=== PATIENT | female | born 1940 | race Caucasian/White ===

== ENCOUNTER 2018-06-02 20:14 | Inpatient (IN) | payer OTHER ==
[~2018-06-02] VITALS: Ht 162.6 cm; Wt 65.0 kg
[~2018-06-02 20:14] MED LIST: ADVIN10/60 INH; AMB10 PO; MULT-506 PO; WLLSR/200 PO
[2018-06-02] MEDS ORDERED: SODIUM CHLORIDE 0.9% 1000ML 1,000 ML IV STA ×2 (20:31)
[2018-06-02 20:45] LABS: BASO % 0.2 %; BASO ABS # 0.02 K/uL (0-0.2); EOS % 0.5 %; EOS ABS # 0.06 K/uL (0-0.5); HEMATOCRIT 40.3 % (37-47); HEMOGLOBIN 13.3 g/dL (12.0-16.0); IG# 0.02 K/uL (0.00-0.02); LYMPH % 19.9 %; LYMPH ABS # 2.31 K/uL (1.2-3.4); MEAN CELL VOLUME 92.6 fL (80-100); MEAN CORPUSCULAR HEMOGLOBIN 30.6 pg (25-34); MEAN PLATELET VOLUME 10.5 fL (7.4-10.4); MONO % 5.4 %; MONO ABS # 0.63 K/uL (0.11-0.59); NEUT % 73.8 %; NEUT ABS # 8.58 K/uL (1.4-6.5); PLATELET COUNT 326 K/uL (130-400); RED CELL DISTRIBUTION WIDTH CV 12.9 % (11.5-14.5); WHITE BLOOD COUNT 11.62 K/uL (4.8-10.8)
[2018-06-02 20:54] LABS: INR 0.9 (0.9-1.1); PTT PATIENT 24.3 SECONDS (21.0-31.0)
[2018-06-02 21:11] LABS: CALCIUM 9.5 mg/dl (8.5-10.1); POTASSIUM 3.4 mmol/L (3.5-5.1); TOTAL PROTEIN 8.1 gm/dl (6.4-8.2)
[2018-06-02] MEDS ORDERED: ZOLP10TA PO (21:59)
[2018-06-02] MEDS ORDERED: PRED20TA PO (22:00)
[2018-06-02] MEDS ORDERED: BUPR-79 PO (22:01)
[2018-06-02] MEDS ORDERED: BUPR200T2 PO ×2 (22:01→23:55)
[2018-06-02] MEDS ORDERED: ALBINS/ INH (23:55)
[2018-06-02] MEDS ORDERED: VNTHFA/IN INH (23:55)
[2018-06-02] MEDS ORDERED: ASPI-232 PO (23:55)
[2018-06-02] MEDS ORDERED: FEXO1TAB46 PO (23:55)
[2018-06-02] MEDS ORDERED: ADVIN25/60 INH (23:55)
[2018-06-03] VITALS (7 sets, daily range): BP systolic 106–152; BP diastolic 65–92; PULSE 73–105; TEMP 36.6–36.9; O2SAT 95–98; Ht 162.6 cm; Wt 65.0 kg
[2018-06-03] MEDS ORDERED: ALUMINUM/MAGNESIUM/SIMETH (MAALOX MAX) 30 ML UDC PO PRN
[2018-06-03] MEDS ORDERED: ALBUTEROL HFA 8 GM INHALER INH PRN
[2018-06-03] MEDS ORDERED: ALBUTEROL 0.083% NEBU SOLN 3 ML VIAL INH PRN
[2018-06-03] MEDS ORDERED: NITROGLYCERIN 0.4 MG SL PER TAB CHARGE SL PRN
[2018-06-03] MEDS ORDERED: ONDANSETRON INJ 2 MG/ML 2 ML VIAL IV PRN
[2018-06-03] MEDS ORDERED: ACETAMINOPHEN 325 MG TAB PO PRN
[2018-06-03] MEDS: SODIUM CHLORIDE 0.9% 1000ML 1,000 ML IV SCH ×2 (00:52→14:23)
[2018-06-03] MEDS ORDERED: ZOLPIDEM TARTRATE 10 MG TAB PO ONE (01:00)
[2018-06-03] MEDS ORDERED: ZOLPIDEM TARTRATE 5 MG TAB PO ONE (01:15)
--- NOTE | 2018-06-03 01:44 | EMERGENCY ROOM VISIT NOTE ---
History Report prepared by Kailyn: Gustavo Reid Under the Supervision of: Dr. Shabbir Modi D.O. First contact with patient: 20:22 Chief Complaint: GI ASSESSMENT Stated Complaint: EXPELLED BLOOD CLOTS RECTALLY,DIARRHEA History of Present Illness The patient is a 78 year old female who presents to the Emergency Room with complaints of blood clots that emerged from her rectum at 1830 today while urinating. She explains that 2-3 blood clots about the size of a quarter came out. She notes she did have bad diarrhea this morning but there was no blood in the stool. She does have a history of IBS and is not on any blood thinners. Pt denies headache, change in vision, fevers, chest pain, shortness of breath, abdominal pain, nausea, vomiting, diarrhea, pain with urination, and melena. Source of History: patient Onset: 1829 today Position: abdomen Timing: intermittent Associated Symptoms: + diarrhea, No fevers, No chest pain, No SOB, No nausea , No vomiting, No melena, No urinary symptoms Review of Systems See HPI for pertinent positives & negatives. A total of 10 systems reviewed and were otherwise negative. Past Medical & Surgical Medical Problems: (1) Breast cancer (2) Gastroparesis (3) GERD (gastroesophageal reflux disease) (4) GI bleed (5) Kidney stone Family History Patient reports no known family medical history. Social History Smoking Status: Never Smoker Alcohol Use: occasionally Marital Status: Housing Status: lives alone Occupation Status: employed Current/Historical Medications Scheduled Aspirin (Aspir-81), 1 TAB PO DAILY Bupropion (Wellbutrin Sr), 200 MG PO BID Fluticasone Prop/Salmeterol (Advair Diskus 250/50 60 Dose), 1 PUFF INH BID Multivitamin (Multivitamin), 1 TAB PO DAILY Zolpidem Tartrate (Ambien), 10 MG PO HS Scheduled PRN Albuterol Hfa (Ventolin Hfa), 2 PUFFS INH Q6H PRN for SOB/Wheezing Albuterol Sulf (Proventil 0.083% 2.5MG/3ML), 2.5 MG INH Q4 PRN for SOB/Wheezing Fexofenadine Hcl (Marvin), 180 MG PO DAILY PRN for Allergic Reaction Allergies Coded Allergies: Atorvastatin (Verified Adverse Reaction, Intermediate, LEG PAIN, 03/15/16) Physical Exam Vital Signs Date Time Temp Pulse Resp B/P (MAP) Pulse Ox O2 Delivery O2 Flow Rate FiO2 06/02/18 23:46 98 16 149/89 99 Room Air 06/02/18 22:03 105 16 148/84 99 Room Air 06/02/18 20:39 99 Room Air 06/02/18 20:30 135 06/02/18 20:16 36.9 141 16 177/94 96 Room Air Physical Exam GENERAL: Sitting up in bed, alert, well appearing, well nourished, no distress, non-toxic EYE EXAM: normal conjunctiva. OROPHARYNX: no exudate, no erythema, lips, buccal mucosa, and tongue normal and mucous membranes are moist NECK: supple, no nuchal rigidity, no adenopathy, non-tender LUNGS: Clear to auscultation. Normal chest wall mechanics HEART: no murmurs, S1 normal and S2 normal ABDOMEN: abdomen soft, non-tender, normo-active bowel sounds, no masses, no rebound or guarding. BACK: Back is symmetrical on inspection and there is no deformity, no midline tenderness, no CVA tenderness. RECTAL: Heme positive stool SKIN: no rashes and no bruising UPPER EXTREMITIES: upper extremities are grossly normal. LOWER EXTREMITIES: No pitting edema. NEURO EXAM: Normal sensorium, cranial nerves II-XII grossly intact, normal speech, no gross weakness of arms, no gross weakness of legs. Medical Decision & Procedures Laboratory Results 06/02/18 20:30 Red Blood Count 4.35, Mean Corpuscular Volume 92.6, Mean Corpuscular Hemoglobin 30.6, Mean Corpuscular Hemoglobin Concent 33.0, Mean Platelet Volume 10.5, Neutrophils (%) (Auto) 73.8, Lymphocytes (%) (Auto) 19.9, Monocytes (%) (Auto) 5.4, Eosinophils (%) (Auto) 0.5, Basophils (%) (Auto) 0.2, Neutrophils # (Auto) 8.58, Lymphocytes # (Auto) 2.31, Monocytes # (Auto) 0.63, Eosinophils # (Auto) 0.06, Basophils # (Auto) 0.02 06/02/18 20:30 Test 06/02/18 20:30 06/02/18 20:45 White Blood Count 11.62 K/uL (4.8-10.8) Red Blood Count 4.35 M/uL (4.2-5.4) Hemoglobin 13.3 g/dL (12.0-16.0) Hematocrit 40.3 % (37-47) Mean Corpuscular Volume 92.6 fL (80-100) Mean Corpuscular Hemoglobin 30.6 pg (25-34) Mean Corpuscular Hemoglobin Concent 33.0 g/dl (32-36) Platelet Count 326 K/uL (130-400) Mean Platelet Volume 10.5 fL (7.4-10.4) Neutrophils (%) (Auto) 73.8 % Lymphocytes (%) (Auto) 19.9 % Monocytes (%) (Auto) 5.4 % Eosinophils (%) (Auto) 0.5 % Basophils (%) (Auto) 0.2 % Neutrophils # (Auto) 8.58 K/uL (1.4-6.5) Lymphocytes # (Auto) 2.31 K/uL (1.2-3.4) Monocytes # (Auto) 0.63 K/uL (0.11-0.59) Eosinophils # (Auto) 0.06 K/uL (0-0.5) Basophils # (Auto) 0.02 K/uL (0-0.2) RDW Standard Deviation 44.0 fL (36.4-46.3) RDW Coefficient of Variation 12.9 % (11.5-14.5) Immature Granulocyte % (Auto) 0.2 % Immature Granulocyte # (Auto) 0.02 K/uL (0.00-0.02) Prothrombin Time 9.8 SECONDS (9.0-12.0) Prothromb Time International Ratio 0.9 (0.9-1.1) Activated Partial Thromboplast Time 24.3 SECONDS (21.0-31.0) Partial Thromboplastin Ratio 0.9 Anion Gap 10.0 mmol/L (3-11) Est Creatinine Clear Calc Drug Dose 42.7 ml/min Estimated GFR () 62.1 Estimated GFR (Non- 53.5 BUN/Creatinine Ratio 8.2 (10-20) Calcium Level 9.5 mg/dl (8.5-10.1) Total Bilirubin 0.5 mg/dl (0.2-1) Direct Bilirubin 0.1 mg/dl (0-0.2) Aspartate Amino Transf (AST/SGOT) 13 U/L (15-37) Alanine Aminotransferase (ALT/SGPT) 19 U/L (12-78) Alkaline Phosphatase 85 U/L (45-117) Total Protein 8.1 gm/dl (6.4-8.2) Albumin 4.0 gm/dl (3.4-5.0) Lipase 95 U/L (73-393) Urine Color YELLOW Urine Appearance CLEAR (CLEAR) Urine pH 6.0 (4.5-7.5) Urine Specific [place] 1.010 (1.000-1.030) Urine Protein NEG (NEG) Urine Glucose (UA) NEG (NEG) Urine Ketones NEG (NEG) Urine Occult Blood TRACE (NEG) Urine Nitrite NEG (NEG) Urine Bilirubin NEG (NEG) Urine Urobilinogen NEG (NEG) Urine Leukocyte Esterase LARGE (NEG) Urine WBC (Auto) >30 /hpf (0-5) Urine RBC (Auto) 0-4 /hpf (0-4) Urine Hyaline Casts (Auto) 10-30 /lpf (0-5) Urine Epithelial Cells (Auto) 20-30 /lpf (0-5) Urine Bacteria (Auto) NEG (NEG) Laboratory results per my review. Medications Administered Medications (Trade) Dose Ordered Sig/Poncho Route Start Time Stop Time Status Last Admin Dose Admin Sodium Chloride 1,000 ml @ 999 mls/hr Q1H1M STAT IV 06/02/18 20:31 06/02/18 21:31 DC 06/02/18 20:46 999 MLS/HR Sodium Chloride 1,000 ml @ 999 mls/hr Q1H1M STAT IV 06/02/18 20:31 06/02/18 21:31 DC 06/02/18 20:47 999 MLS/HR Sodium Chloride 1,000 ml @ 75 mls/hr [id number] IV 06/02/18 23:49 07/02/18 23:48 06/03/18 00:52 75 MLS/HR ECG Per My Interpretation Indication: abdominal pain Rate (beats per minute): 117 Rhythm: sinus tachycardia Findings: other (Non specific ST changes in lateral leads ) ED Course ED COURSE: Vital signs were reviewed and showed hypertension and tachycardia. The patients medical record was reviewed The above diagnostic studies were performed and reviewed. ED treatments and interventions as stated above. 2025: The patient was evaluated in room A9B. A complete history and physical examination was performed. 2136: I updated the patient about tests results. 2145: I spoke with Dr. Sincere Velázquez about accepting the patient. 2224: Upon reevaluation, the patient is resting in bed. I discussed my findings with the patient and she understands and agrees with the treatment plan. Based on the patients age, coexisting illnesses, exam and lab findings the decision to treat as an inpatient was made. The patient remained stable while under my care. The patient will be evaluated for further management. Medical Decision Differential diagnoses includes but is not limited to gastritis, peptic ulcer disease, GERD, gallbladder disease, pancreatitis, small bowel obstruction, acute coronary syndrome, pericarditis, ischemic bowel, irritable bowel disease, irritable bowel syndrome, appendicitis, diverticulitis, malignancy, hernia, urinary tract infection, torsion, [/ectopic (if female)], perforation, trauma, infectious. Patient is a 78-year-old female who presents the ER for dark blood blood per rectum associated with a heart rate in the 130s. EKG confirms sinus tach with nonspecific ST wave changes. Patient was given IVs. CBC was unremarkable with a hemoglobin 12 and no significant leukocytosis. BMP with mild hypokalemia at 3.4. Bilirubin and LFTs along with lipase is unremarkable. UA does suggest is likely contaminated. No urinary symptoms. Patient was updated bedside discussed with the hospitalist for observation. Medication Reconcilliation Current Medication List: was personally reviewed by me Blood Pressure Screening Patient's blood pressure: Elevated blood pressure Blood pressure disposition: Elevated BP felt to be situational Consults Time Called: 2145 Consulting Physician: Dr. Sincere Velázquez Returned Call: 2145 I reviewed the patient's case with Dr. Post. He will evaluate the patient for further management. Impression Primary Impression: GI bleed Additional Impressions: Tachycardia Hypokalemia Scribe Attestation The scribe's documentation has been prepared under my direction and personally reviewed by me in its entirety. I confirm that the note above accurately reflects all work, treatment, procedures, and medical decision making performed by me. Departure Information Dispostion Being Evaluated By Hospitalist Prescriptions Fexofenadine Hcl (MARVIN) 180 Mg Tab 180 MG PO DAILY Y for Allergic Reaction, #10 TAB Prov: Radames Post MD 06/02/18 Aspirin (ASPIR-81) 81 Mg Tab 1 TAB PO DAILY for 30 Days, #30 TAB 5 Refills Prov: Radames Post MD 06/02/18 Albuterol Sulf (PROVENTIL 0.083% 2.5MG/3ML) 2.5 Mg/3 Ml Nebu 2.5 MG INH Q4 Y for SOB/Wheezing, #1 EA Prov: Radames Post MD 06/02/18 Albuterol Hfa (VENTOLIN HFA) 200 Puffs/79189 Mcg Aers 2 PUFFS INH Q6H Y for SOB/Wheezing, #1 INHALER Prov: Radames Post MD 06/02/18 Fluticasone Prop/Salmeterol (Advair Diskus 250/50 60 Dose) 1 Ea Aerp 1 PUFF INH BID, #1 INHALER Prov: Radames Post MD 06/02/18 Bupropion (Wellbutrin Sr) 200 Mg Ertab 200 MG PO BID, #30 TAB Prov: Radames Post MD 06/02/18 Referrals Kim Martin D.OQuinton (PCP) Forms HOME CARE DOCUMENTATION FORM, IMPORTANT VISIT INFORMATION Patient Instructions [facility] Problem Qualifiers Primary Impression: GI bleed GI bleed type/associated pathology: unspecified gastrointestinal hemorrhage type Qualified Codes: K92.2 - Gastrointestinal hemorrhage, unspecified
--- NOTE | 2018-06-03 02:57 | HISTORY & PHYSICAL EXAMINATION ---
DATE OF ADMISSION: 06/02/2018 CHIEF COMPLAINT: Blood in the stools. HISTORY OF PRESENT ILLNESS: This is a 78-year-old female with past medical history significant for gastroparesis, hyperlipidemia, irritable bowel syndrome, esophageal stricture, GERD, COPD, presents with blood in the stools. The patient states in the morning when she woke up, she had a gush of diarrhea and she had regular visit with the family doctor. Then after coming home, she again had a bowel movement with few clots of blood and that prompted her to come to the ER. Since then, she did not move her bowels. Denies any belly pain. No nausea, no vomiting. Currently, resting comfortable and hemodynamically stable. Denies any headaches. No blurred vision, no earache, no runny nose, no sore throat, no difficulty swallowing. No cough. No chest pain or shortness of breath. No rash, no swelling in the legs, otherwise the patient is doing okay. She says she had a colonoscopy last year and was okay and once in a while she gets an EGD done to get her esophageal stricture dilated. ALLERGIES: LIPITOR. PAST MEDICAL HISTORY: As mentioned above. PAST SURGICAL HISTORY: Colonoscopy, EGD with biopsy, EGD with dilatation, partial mastectomy, right breast biopsy. MEDICATIONS: The patient is currently on Wellbutrin SR 200 mg p.o. b.i.d., Ambien 10 mg p.o. at bedtime, Advair Diskus 250/50 one dose b.i.d., albuterol 2 puffs p.r.n., Tylenol p.r.n., vitamin C 1000 mg p.o. daily, fexofenadine 180 mg p.r.n., albuterol nebulization q. 4 hours p.r.n., aspirin 81 mg p.o. daily, multivitamin p.o. daily. FAMILY HISTORY: Significant for father had skin cancer, diabetes. Mother had breast cancer, skin cancer. Sister has diabetes. SOCIAL HISTORY: . No smoking history. Alcohol socially. No drug use. REVIEW OF SYMPTOMS: As per HPI. Rest of review of symptoms negative. PHYSICAL EXAMINATION: GENERAL: The patient is of moderate build, not in distress. VITAL SIGNS: Temperature 36.9, pulse 105, respiratory rate 16, blood pressure 148/84, oxygen 99% on room air. HEENT: No pallor, no icterus. Pupils equal, round, and reactive to light. NECK: No JVD, no neck masses, no carotid bruits. CARDIOVASCULAR: S1, S2 heard. Tachycardia. No murmur. RESPIRATORY SYSTEM: Normal AP diameter. No accessory muscle use. No wheezing, no crackles. ABDOMEN: Soft, bowel sounds present. Nontender. No distention. CENTRAL NERVOUS SYSTEM: Cranial nerves II-XII grossly intact. Nonfocal. EXTREMITIES: No edema, no erythema. LABS: WBC 11.6, hemoglobin 13.3, hematocrit 40.3, platelets 326. Sodium 140, potassium 3.4, chloride 106, bicarb 24, BUN 8, creatinine 1, serum glucose 107, calcium 9.5, total bilirubin 0.5, direct bilirubin 0.1, AST 13, ALT 19, alkaline phosphatase 85, lipase 95. PT 9.8, INR 0.9, APTT 24.3. Urinalysis positive for leukocyte esterase. EKG shows sinus tachycardia with rate of 117, nonspecific ST changes seen, no acute ST changes seen. ASSESSMENT AND PLAN: This is a 78-year-old female who presents with gastrointestinal bleed. 1. Gastrointestinal bleed. Lower gastrointestinal bleed with few blood clots in the bowel movement. Currently, resting comfortably, hemodynamically stable. Patient has history of irritable bowel syndrome. Hemoglobin is stable. We will keep her n.p.o., IV fluids, follow H and H and consult GI for further recommendations. The patient said she had colonoscopy last year, which was okay and she says she stopped taking ibuprofen for arthritis about 7 weeks ago and currently taking Tylenol. 2. History of esophageal stricture, currently stable. 3. History of irritable bowel syndrome. We will monitor. 4. History of depression. Continue Wellbutrin. 5. History of chronic obstructive pulmonary disease, asthma. Continue Advair Diskus and nebulization p.r.n. 6. Deep venous thrombosis prophylaxis, SCDs for now. 7. Disposition: Admit to tele floor. Expect to discharge home and follow with family doctor. Level 1 full code. MTDD
[2018-06-03 06:32] LABS: BASO % 0.3 %; BASO ABS # 0.02 K/uL (0-0.2); EOS ABS # 0.08 K/uL (0-0.5); HEMATOCRIT 35.3 % (37-47); HEMOGLOBIN 11.5 g/dL (12.0-16.0); IG# 0.02 K/uL (0.00-0.02); LYMPH % 28.2 %; LYMPH ABS # 2.22 K/uL (1.2-3.4); MEAN CELL VOLUME 93.6 fL (80-100); MEAN CORPUSCULAR HEMOGLOBIN 30.5 pg (25-34); MEAN CORPUSCULAR HGB CONC 32.6 g/dl (32-36); MEAN PLATELET VOLUME 9.6 fL (7.4-10.4); MONO % 7.3 %; MONO ABS # 0.57 K/uL (0.11-0.59); NEUT % 62.9 %; NEUT ABS # 4.95 K/uL (1.4-6.5); PLATELET COUNT 238 K/uL (130-400); RED CELL DISTRIBUTION WIDTH SD 44.7 fL (36.4-46.3); WHITE BLOOD COUNT 7.86 K/uL (4.8-10.8)
[2018-06-03 07:05] LABS: CALCIUM 8.5 mg/dl (8.5-10.1); CREATININE 0.8 mg/dl (0.60-1.20); POTASSIUM 3.4 mmol/L (3.5-5.1)
[2018-06-03] MEDS: BuPROPion SR 100 MG TABCR PO SCH ×2 (07:45→20:24)
[2018-06-03] MEDS: FLUTICASONE/SALMETEROL 250/50 (ADVAIR) 14 PUFF/1 INHALER INH SCH ×2 (07:45→20:04)
[2018-06-03] MEDS ORDERED: POTASSIUM CHLORIDE 10 MEQ TABCR PO STA (08:13)
[2018-06-03] MEDS ORDERED: MULTIVITAMIN TAB PO SCH (09:00)
[2018-06-03] MEDS: PANTOprazole INJ 40 MG in SYRINGE 0 ML IV SCH ×2 (09:17→20:24)
[2018-06-03] MEDS ORDERED: ANUSOL SUPP 1 EA PR PRN (11:15)
--- NOTE | 2018-06-03 12:26 | Gastrointestinal Consultation ---
Gastrointestinal Consultation Date of Consultation: Jun 03, 2018 Attending Physician: Michelle Oliver Consulting Physician: Bashir Ty Reason for Consultation: Rectal bleed History of Present Illness Patient is a 78 year old female w hx of gastroparesis, hyperlipidemia, IBS, esophageal stricture/ring requiring intermittent esophageal dilation, GERD, COPD , who came to ED yesterday w c/o rectal bleeding. She had large liquid stools yesterday morning associated w mild lower abd cramping. Then around 6P last night, she had another BM which turned out to be some clots of bright red blood sizes of dime-quarter. She denies any more rectal bleeding since then, also denies any fever, chills, abd pain, n/v, sick contact, recent antibiotics. Upon eval, her blood ct was 13/40, after fluid resuscitation down to 11.5/35. INR 0.9 , Plt 238. No signs of BUN elevation. She denies any more rectal bleeding since admitted except when she urinated she wiped and there was just a speck of blood & mucus. She could feel "something" trying to come out of rectal area when she bears down. Wants to eat today. Last EGD/Colonoscopy done 03/26/17 showed some thrush, Schatzski's ring, and diverticulosis, adenomatous polyp Past Medical/Surgical History Medical Problems: (1) Hypokalemia Status: Acute (2) Tachycardia Status: Acute Past Medical History: See above Past Surgical History: Partial mastectomy, R breast bx. Family History Patient reports no known family medical history. Social History Smoking Status: Never Smoker Alcohol Use: occasionally Marital Status: Housing Status: lives alone Occupation Status: employed Allergies Coded Allergies: Atorvastatin (Verified Adverse Reaction, Intermediate, LEG PAIN, 03/15/16) Current Medications Home Meds and Scripts Medications Dose Route/Sig Max Daily Dose Days Date Category Cristina (Fexofenadine Hcl) 180 Mg Tab 180 Mg PO DAILY PRN 06/02/18 Rx Aspir-81 (Aspirin) 81 Mg Tab 1 Tab PO DAILY 30 06/02/18 Rx Proventil 0.083% 2.5MG/3ML (Albuterol Sulf) 2.5 Mg/3 Ml Nebu 2.5 Mg INH Q4 PRN 06/02/18 Rx Ventolin Hfa (Albuterol) 200 Puffs/14241 Mcg Aers 2 Puffs INH Q6H PRN 06/02/18 Rx Advair Diskus 250/50 60 Dose (Fluticasone Prop/Salmeterol) 1 Ea Aerp 1 Puff INH BID 06/02/18 Rx Wellbutrin Sr (Bupropion HCl) 200 Mg Ertab 200 Mg PO BID 06/02/18 Rx Ambien (Zolpidem Tartrate) 10 Mg Tab 10 Mg PO HS 06/02/18 Reported Multivitamin (Multivitamins) Tab 1 Tab PO DAILY 03/15/16 Reported Review of Systems Constitutional: No fever, No chills Respiratory: No cough, No shortness of breath Cardiac: No chest pain Abdomen: + diarrhea, + GI bleeding, No pain, No nausea, No vomiting Skin: No rash, No itch, No jaundice Physical Exam Date Time Temp Pulse Resp B/P (MAP) Pulse Ox O2 Delivery O2 Flow Rate FiO2 06/03/18 11:22 36.7 81 18 127/70 (89) 96 Room Air 06/03/18 08:00 Room Air 06/03/18 07:15 36.8 76 18 112/65 (81) 97 Room Air 06/03/18 04:16 36.8 81 20 106/69 (81) 97 Room Air 06/03/18 00:28 36.9 105 18 152/92 95 Room Air 06/03/18 00:15 Room Air 06/03/18 00:02 97 06/02/18 23:46 98 16 149/89 99 Room Air 06/02/18 22:03 105 16 148/84 99 Room Air 06/02/18 20:39 99 Room Air 06/02/18 20:30 135 06/02/18 20:16 36.9 141 16 177/94 96 Room Air General Appearance: WD/WN, no apparent distress Eyes: normal inspection, PERRL, EOMI Neck: supple, no JVD, trachea midline Respiratory/Chest: normal breath sounds, no respiratory distress, no accessory muscle use Cardiovascular: regular rate, rhythm, no gallop, no murmur Abdomen: normal bowel sounds, non tender, soft, + pertinent finding (External and internal hemorrhoids noted on rectal exam, no fissure. Specks of light brown stool in rectal vault. No blood noted. ) Extremities: normal inspection, no pedal edema, no calf tenderness Neurologic/Psych: alert, normal mood/affect, oriented x 3 Skin: normal color, no jaundice, no rash Laboratory Results Last 24 Hours Test 06/02/18 20:30 06/02/18 20:45 06/03/18 06:20 White Blood Count 11.62 K/uL 7.86 K/uL Red Blood Count 4.35 M/uL 3.77 M/uL Hemoglobin 13.3 g/dL 11.5 g/dL Hematocrit 40.3 % 35.3 % Mean Corpuscular Volume 92.6 fL 93.6 fL Mean Corpuscular Hemoglobin 30.6 pg 30.5 pg Mean Corpuscular Hemoglobin Concent 33.0 g/dl 32.6 g/dl Platelet Count 326 K/uL 238 K/uL Mean Platelet Volume 10.5 fL 9.6 fL Neutrophils (%) (Auto) 73.8 % 62.9 % Lymphocytes (%) (Auto) 19.9 % 28.2 % Monocytes (%) (Auto) 5.4 % 7.3 % Eosinophils (%) (Auto) 0.5 % 1.0 % Basophils (%) (Auto) 0.2 % 0.3 % Neutrophils # (Auto) 8.58 K/uL 4.95 K/uL Lymphocytes # (Auto) 2.31 K/uL 2.22 K/uL Monocytes # (Auto) 0.63 K/uL 0.57 K/uL Eosinophils # (Auto) 0.06 K/uL 0.08 K/uL Basophils # (Auto) 0.02 K/uL 0.02 K/uL RDW Standard Deviation 44.0 fL 44.7 fL RDW Coefficient of Variation 12.9 % 13.0 % Immature Granulocyte % (Auto) 0.2 % 0.3 % Immature Granulocyte # (Auto) 0.02 K/uL 0.02 K/uL Prothrombin Time 9.8 SECONDS Prothromb Time International Ratio 0.9 Activated Partial Thromboplast Time 24.3 SECONDS Partial Thromboplastin Ratio 0.9 Sodium Level 140 mmol/L 146 mmol/L Potassium Level 3.4 mmol/L 3.4 mmol/L Chloride Level 106 mmol/L 112 mmol/L Carbon Dioxide Level 24 mmol/L 24 mmol/L Anion Gap 10.0 mmol/L 10.0 mmol/L Blood Urea Nitrogen 8 mg/dl 7 mg/dl Creatinine 1.00 mg/dl 0.80 mg/dl Est Creatinine Clear Calc Drug Dose 42.7 ml/min 49.3 ml/min Estimated GFR () 62.1 81.3 Estimated GFR (Non- 53.5 70.1 BUN/Creatinine Ratio 8.2 8.2 Random Glucose 107 mg/dl 99 mg/dl Calcium Level 9.5 mg/dl 8.5 mg/dl Total Bilirubin 0.5 mg/dl Direct Bilirubin 0.1 mg/dl Aspartate Amino Transf (AST/SGOT) 13 U/L Alanine Aminotransferase (ALT/SGPT) 19 U/L Alkaline Phosphatase 85 U/L Total Protein 8.1 gm/dl Albumin 4.0 gm/dl Lipase 95 U/L Urine Color YELLOW Urine Appearance CLEAR Urine pH 6.0 Urine Specific [place] 1.010 Urine Protein NEG Urine Glucose (UA) NEG Urine Ketones NEG Urine Occult Blood TRACE Urine Nitrite NEG Urine Bilirubin NEG Urine Urobilinogen NEG Urine Leukocyte Esterase LARGE Urine WBC (Auto) >30 /hpf Urine RBC (Auto) 0-4 /hpf Urine Hyaline Casts (Auto) 10-30 /lpf Urine Epithelial Cells (Auto) 20-30 /lpf Urine Bacteria (Auto) NEG Magnesium Level 2.3 mg/dl Impression Patient is a 78 year old female who presented initially w large loose stools x 1 then later yesterday evening around 6P had BM w blood clots and none since then. No significant anemia, no BUN elevation. Rectal exam w/o signs of residual blood or clots but she does have internal and external hemorrhoids. DDx : hemorrhoidal bleeding, diverticular bleeding, diarrhea from infectious source. Plan - If diarrhea occur again, can obtain stool cx, Cdiff - No plans for endoscopic evaluation at this time. Will advance to regular consistency diet - Trial Anusol suppository at for hemorrhoidal bleeding. - OK for DC from GI standpoint; call if new questions/concerns occur. I saw and evaluated the patient with Quinton Kristina. He presented to the emergency room yesterday evening with a single episode of hematochezia. This has not recurred since her admission overnight. She has had prior endoscopic evaluations with Dr. Hankins and has followed in the past with him for irritable bowel syndrome. She does note having alteration of bowel habits sometimes and sometimes having diarrhea. She has not found a particular strategy which works well for her. Physical examination No obvious distress, healthy-appearing female no scleral icterus noted Impression: Patient with a history of irritable bowel syndrome presenting with scant hematochezia. As this was an isolated episode and she does have hemorrhoids would not recommend a repeat colonoscopy for the present time. If the patient has recurrent symptoms she should then seek advice from Dr. Hankins who is her primary gas neurologist to determine if a repeat colonoscopy should be performed. I would suggest that she begin Colace 100 mg twice daily in addition to probiotics such as BigDeal. She should contact Dr. Hankins with any questions or concerns.
[2018-06-03 14:00] LABS: HEMATOCRIT 37.2 % (37-47); HEMOGLOBIN 11.9 g/dL (12.0-16.0)
[2018-06-03] MEDS ORDERED: DOCU-94 PO (19:57)
[2018-06-03] MEDS ORDERED: POTASSIUM CHLORIDE 10 MEQ TABCR PO ONE (20:00)
--- NOTE | 2018-06-03 20:00 | Discharge Instructions ---
Discharge Instructions Date of Service Jun 03, 2018. Admission Reason for Admission: Gi Bleed Discharge Discharge Diagnosis / Problem: LOWER GI BLEED DUE TO HEMORROIDS Discharge Goals Goal(s): Decrease discomfort, Improve function, Increase independence, Improve disease control, Diagnostic testing Activity Recommendations Activity Limitations: resume your previous activity . Instructions / Follow-Up Instructions / Follow-Up HOSPITAL FOLLOW UP WITH FAMILY PHYSICIAN ABRAM HALE PA-C , OFFICE WILL CALL WITH APPOINTMENT CONTINUE TO TAKE COLACE TAB TWICE DAILY TAKE PLENTY OF FIBERS -FRUITS AND VEGETABLE TO PREVENT CONSTIPATION FOLLOW UP WITH GI DR STOLL DO NOT TAKE ASPIRIN Current Hospital Diet Patient's current hospital diet: Regular Diet Discharge Diet Recommended Diet: Regular Diet Pending Studies Studies pending at discharge: no Medical Emergencies . Who to Call and When: Medical Emergencies: If at any time you feel your situation is an emergency, please call 911 immediately. . Non-Emergent Contact Non-Emergency issues call your: Primary Care Provider . . "Provider Documentation" section prepared by Michelle Oliver. .
[2018-06-03] MEDS ORDERED: ANSS PR (20:41)
--- NOTE | 2018-06-03 20:43 | Discharge Summary ---
Discharge Summary Date of Service Jun 03, 2018. Discharge Summary Admission Date: Jun 02, 2018 at 23:53 Discharge Date: Jun 03, 2018 Discharge Disposition: Home Principal Diagnosis: LOWER GI BLEED DUE TO HEMORRHOIDS Consultations: [facility] Medication Reconciliation New Medications: Docusate Sodium (Colace) 100 Mg Cap 1 CAP PO BID for 30 Days, #60 CAP over the counter Phenylephrine In Hard Fat (Dior-Med) 1 Ea Supp 1 EA NM HS PRN for Hemorrhoids for 30 Days, #30 SUPP 2 Refills Continued Medications: Albuterol Hfa (Ventolin Hfa) 200 Puffs/45292 Mcg Aers 2 PUFFS INH Q6H PRN for SOB/Wheezing, #1 INHALER Albuterol Sulf (Proventil 0.083% 2.5MG/3ML) 2.5 Mg/3 Ml Nebu 2.5 MG INH Q4 PRN for SOB/Wheezing, #1 EA Bupropion (Wellbutrin Sr) 200 Mg Ertab 200 MG PO BID, #30 TAB Fexofenadine Hcl (Cristina) 180 Mg Tab 180 MG PO DAILY PRN for Allergic Reaction, #10 TAB Fluticasone Prop/Salmeterol (Advair Diskus 250/50 60 Dose) 1 Ea Aerp 1 PUFF INH BID, #1 INHALER Multivitamin (Multivitamin) Tab 1 TAB PO DAILY Zolpidem Tartrate (Ambien) 10 Mg Tab 10 MG PO HS, TAB Discontinued Medications: Aspirin (Aspir-81) 81 Mg Tab 1 TAB PO DAILY for 30 Days, #30 TAB 5 Refills Admission Information HPI (per Admitting provider): DATE OF ADMISSION: 06/02/2018 CHIEF COMPLAINT: Blood in the stools. HISTORY OF PRESENT ILLNESS: This is a 78-year-old female with past medical history significant for gastroparesis, hyperlipidemia, irritable bowel syndrome, esophageal stricture, GERD, COPD, presents with blood in the stools. The patient states in the morning when she woke up, she had a gush of diarrhea and she had regular visit with the family doctor. Then after coming home, she again had a bowel movement with few clots of blood and that prompted her to come to the ER. Since then, she did not move her bowels. Denies any belly pain. No nausea, no vomiting. Currently, resting comfortable and hemodynamically stable. Denies any headaches. No blurred vision, no earache, no runny nose, no sore throat, no difficulty swallowing. No cough. No chest pain or shortness of breath. No rash, no swelling in the legs, otherwise the patient is doing okay. She says she had a colonoscopy last year and was okay and once in a while she gets an EGD done to get her esophageal stricture dilated. ALLERGIES: LIPITOR. PAST MEDICAL HISTORY: As mentioned above. PAST SURGICAL HISTORY: Colonoscopy, EGD with biopsy, EGD with dilatation, partial mastectomy, right breast biopsy. MEDICATIONS: The patient is currently on Wellbutrin SR 200 mg p.o. b.i.d., Ambien 10 mg p.o. at bedtime, Advair Diskus 250/50 one dose b.i.d., albuterol 2 puffs p.r.n., Tylenol p.r.n., vitamin C 1000 mg p.o. daily, fexofenadine 180 mg p.r.n., albuterol nebulization q. 4 hours p.r.n., aspirin 81 mg p.o. daily, multivitamin p.o. daily. FAMILY HISTORY: Significant for father had skin cancer, diabetes. Mother had breast cancer, skin cancer. Sister has diabetes. SOCIAL HISTORY: . No smoking history. Alcohol socially. No drug use. Physical Exam (per Admitting): REVIEW OF SYMPTOMS: As per HPI. Rest of review of symptoms negative. PHYSICAL EXAMINATION: GENERAL: The patient is of moderate build, not in distress. VITAL SIGNS: Temperature 36.9, pulse 105, respiratory rate 16, blood pressure 148/84, oxygen 99% on room air. HEENT: No pallor, no icterus. Pupils equal, round, and reactive to light. NECK: No JVD, no neck masses, no carotid bruits. CARDIOVASCULAR: S1, S2 heard. Tachycardia. No murmur. RESPIRATORY SYSTEM: Normal AP diameter. No accessory muscle use. No wheezing, no crackles. ABDOMEN: Soft, bowel sounds present. Nontender. No distention. CENTRAL NERVOUS SYSTEM: Cranial nerves II-XII grossly intact. Nonfocal. EXTREMITIES: No edema, no erythema. Hospital Course No further episode of GI bleed, no episode of dark stool or bright red blood per rectum Tolerating diet well, no nausea vomiting No abdominal pain or discomfort H&H has been stable Evaluated by GI Patient can be discharged home today with outpatient follow-up PHYSICAL EXAM General: No sign of distress, very pleasant HEENT: Sclera nonicteric, pupils bilateral equal reactive to light Heart: Regular S1 and S2 Lungs: Clear to auscultate no wheeze or rales Abdomen: Soft nontender, no organomegaly, active bowel sound Extremities: No lower extremity edema, rash or deformity Neuro: No focal neurological deficit Date Time Temp Pulse Resp B/P (MAP) Pulse Ox O2 Delivery O2 Flow Rate FiO2 06/03/18 20:39 36.6 79 18 97 Room Air 06/03/18 20:00 Room Air 06/03/18 19:11 36.6 79 18 118/72 (87) 97 Room Air 06/03/18 15:06 36.7 73 18 116/69 (85) 98 Room Air ASSESSMENT AND PLAN GI BLEED: No further episode Possible secondary to hemorrhoidal bleed Appreciate input from gastroenterology Diet advanced, H&H has been stable recommend to discharge patient home with bowel regimen to prevent constipation prescription given for Anusol suppository Outpatient follow-up with GI HISTORY OF IRRITABLE BOWEL SYNDROME: -Continue outpatient follow-up with GI HISTORY OF DEPRESSION: Continue Wellbutrin HYPOKALEMIA: Possibly secondary to GI loss, patient had bouts of diarrhea earlier today Replaced HISTORY OF COPD continue as needed neb treatment Advair inhaler CODE STATUS: Full code DVT prophylaxis: SCD and teds Pharmacological anticoagulation avoided in the setting of GI bleed DISPOSITION: Stable to be discharged home today Total time spent on discharge = 40 mins This includes examination of the patient, discharge planning, medication reconciliation, and communication with other providers. Discharge Instructions Discharge Instructions Date of Service Jun 03, 2018. Admission Reason for Admission: Gi Bleed Discharge Discharge Diagnosis / Problem: LOWER GI BLEED DUE TO HEMORRHOIDS Discharge Goals Goal(s): Decrease discomfort, Improve function, Increase independence, Improve disease control, Diagnostic testing Activity Recommendations Activity Limitations: resume your previous activity . Instructions / Follow-Up Instructions / Follow-Up HOSPITAL FOLLOW UP WITH FAMILY PHYSICIAN ABRAM HALE PA-C , OFFICE WILL CALL WITH APPOINTMENT CONTINUE TO TAKE COLACE TAB TWICE DAILY TAKE PLENTY OF FIBERS -FRUITS AND VEGETABLE TO PREVENT CONSTIPATION FOLLOW UP WITH GI DR STOLL DO NOT TAKE ASPIRIN Current Hospital Diet Patient's current hospital diet: Regular Diet Discharge Diet Recommended Diet: Regular Diet Pending Studies Studies pending at discharge: no Medical Emergencies . Who to Call and When: Medical Emergencies: If at any time you feel your situation is an emergency, please call 911 immediately. . Non-Emergent Contact Non-Emergency issues call your: Primary Care Provider . . "Provider Documentation" section prepared by Michelle Oliver. .
[2018-06-03] MEDS ORDERED: ZOLPIDEM TARTRATE 10 MG TAB PO SCH (21:00)
== END 2018-06-03 21:00 | disposition home or self-care (01) | DRG 395 ==
LOC: C.EDB 20:15 → C.2T 23:53 → ENRESERV 06-03
PROVIDERS: ADMIT Internal Medicine; ATTEND Hospitalist
DX: K64.9 Unspecified hemorrhoids (principal); K31.84 Gastroparesis; K21.9 Gastro-esophageal reflux disease without esophagitis; E87.6 Hypokalemia; E78.5 Hyperlipidemia, unspecified; J44.9 Chronic obstructive pulmonary disease, unspecified; Z85.3 Personal history of malignant neoplasm of breast; Z88.8 Allergy status to other drugs, medicaments and biological substances; Z83.3 Family history of diabetes mellitus; Z80.3 Family history of malignant neoplasm of breast; K58.9 Irritable bowel syndrome, unspecified; F32.9 Major depressive disorder, single episode, unspecified